=== PATIENT | female | born 1985 | race Caucasian/White ===

== ENCOUNTER 2021-02-16 12:40 | Emergency (ER) | payer SELFPAY ==
[2021-02-16] MEDS ORDERED: Naproxen 500 MG TAB ONE (13:23)
== END 2021-02-16 14:37 | disposition home or self-care (01) ==
LOC: NAV ERS 12:40
DX: S56.911A Strain of unspecified muscles, fascia and tendons at forearm level, right arm, initial encounter (principal); X58.XXXA Exposure to other specified factors, initial encounter

== ENCOUNTER 2021-03-07 06:16 | Emergency (ER) | payer BC, SELFPAY ==
[2021-03-07] MEDS ORDERED: Morphine 4 MG/ML VIAL ONE ×2 (07:01→07:39)
[2021-03-07] MEDS ORDERED: Sodium Chloride 0.9% 1,000 ML ONE (07:01)
[2021-03-07] MEDS ORDERED: Ondansetron PF 4 MG/2 ML Vial ONE (07:01)
[2021-03-07 07:07] LABS: #Basophils 0.1 thou/uL (0.0-0.2); #Eosinphils 0.3 thou/uL (0.0-0.7); #Lymphocytes 2.4 thou/uL (1.20-3.40); #Monocytes 0.5 thou/uL (0.11-0.59); #Neutrophils 4.8 thou/uL (1.40-6.50); %Basophils 1.3 % (0.0-1.0); %Eosinophils 3.8 % (0.0-10.0); %Lymphocytes 29.2 % (21.0-51.0); %Neutrophils 59.8 % (42.0-75.0); Hemoglobin 15.6 g/dL (12.0-16.0); Mean Corpuscular HGB CONC 32.8 g/dL (32.0-36.0); Mean Corpuscular Hemoglobin 33.4 pg (27.0-31.0); Mean Platelet Volume 6.5 fL (7.4-10.4); Platelet Count 357 thou/uL (130-400); RBC Distribution Width 10.8 % (11.5-14.5); Red Blood Cell (RBC) Count 4.68 mill/uL (4.20-5.40); White Blood Cell (WBC) Count 8.1 thou/uL (4.8-10.8)
[2021-03-07 07:22] LABS: ALT (SGPT) 24 U/L (8-55); AST (SGOT) 31 U/L (5-34); Albumin 4.2 g/dL (3.5-5.0); Alkaline Phosphatase 69 U/L (40-110); Anion Gap 13 mmol/L (10-20); BUN (Urea Nitrogen) 18 mg/dL (7.0-18.7); Bilirubin, Total 0.2 mg/dL (0.2-1.2); Calc. Creatinine Clearance 0 mL/min (70-130); Calcium 9.5 mg/dL (7.8-10.44); Carbon Dioxide 22 mmol/L (22-29); Chloride 104 mmol/L (98-107); Globulin 3.6 g/dL (2.4-3.5); Glucose 86 mg/dL (70-105); Lipase 37 U/L (8-78); Potassium 3.9 mmol/L (3.5-5.1); Protein, Total 7.8 g/dL (6.0-8.3); Sodium 135 mmol/L (136-145)
[2021-03-07 07:46] LABS: Bilirubin Negative (Negative); Blood, Urine Moderate (Negative); Clarity Clear (Clear); Glucose, Urine (Dipstick) Negative (Negative); Ketone, Urine Negative (Negative); Leukocyte Negative (Negative); Nitrite Negative (Negative); Protein, Urine (Dipstick) Negative (Neg-Trace); Urobilinogen 0.2 mg/dL (Less than 2)
[2021-03-07 07:54] LABS: WBC/HPF 0-3 HPF (0-3)
[2021-03-07 07:55] LABS: Bacteria/HPF Rare-Few HPF (None Seen)
[2021-03-07] MEDS ORDERED: Iopamidol 370 76% 100 ML VIAL ONE (09:00)
== END 2021-03-07 09:10 | disposition home or self-care (01) ==
LOC: NAV ERS 06:16
DX: S39.011A Strain of muscle, fascia and tendon of abdomen, initial encounter (principal); F17.210 Nicotine dependence, cigarettes, uncomplicated; X50.9XXA Other and unspecified overexertion or strenuous movements or postures, initial encounter
CPT/HCPCS: 71046; 74177; 80053; 81003; 81015; 83605; 83690; 85025; 96374; 96375; 96376; J2270; J2405; J7050; Q9967

== ENCOUNTER 2021-07-24 07:40 | Emergency (ER) | payer BC, SELFPAY ==
[2021-07-24] MEDS ORDERED: Ondansetron PF 4 MG/2 ML Vial ONE (08:27)
[2021-07-24] MEDS ORDERED: Sodium Chloride 0.9% 1,000 ML ONE (08:27)
[2021-07-24] MEDS ORDERED: Morphine 4 MG/ML VIAL ONE (08:27)
[2021-07-24 08:31] LABS: #Basophils 0.1 thou/uL (0.0-0.2); #Eosinphils 0.6 thou/uL (0.0-0.7); #Lymphocytes 2.5 thou/uL (1.20-3.40); #Monocytes 0.6 thou/uL (0.11-0.59); #Neutrophils 5.7 thou/uL (1.40-6.50); %Lymphocytes 26.4 % (21.0-51.0); %Monocytes 6.2 % (0.0-10.0); %Neutrophils 60.4 % (42.0-75.0); Hemoglobin 16.4 g/dL (12.0-16.0); Mean Corpuscular Hemoglobin 33.5 pg (27.0-31.0); Mean Platelet Volume 6.4 fL (7.4-10.4); Platelet Count 419 thou/uL (130-400); RBC Distribution Width 10.9 % (11.5-14.5); Red Blood Cell (RBC) Count 4.89 mill/uL (4.20-5.40); White Blood Cell (WBC) Count 9.4 thou/uL (4.8-10.8)
[2021-07-24 08:34] LABS: Bilirubin Negative (Negative); Blood, Urine Moderate (Negative); Clarity Clear (Clear); Glucose, Urine (Dipstick) Negative (Negative); Ketone, Urine Negative (Negative); Leukocyte Negative (Negative); Nitrite Negative (Negative); Protein, Urine (Dipstick) Negative (Neg-Trace); Urobilinogen 0.2 mg/dL (Less than 2)
[2021-07-24 08:35] LABS: Specific Gravity, Urine 1.004 (1.002-1.036)
[2021-07-24 08:41] LABS: Bacteria/HPF Rare-Few HPF (None Seen); Squamous Epithelial 0-3 HPF (0-3); WBC/HPF None Seen HPF (0-3)
[2021-07-24 08:48] LABS: ALT (SGPT) 19 U/L (8-55); AST (SGOT) 28 U/L (5-34); Albumin 4.8 g/dL (3.5-5.0); Alkaline Phosphatase 75 U/L (40-110); Anion Gap 15 mmol/L (10-20); BUN (Urea Nitrogen) 15 mg/dL (7.0-18.7); Bilirubin, Total 0.4 mg/dL (0.2-1.2); Calc. Creatinine Clearance 0 mL/min (70-130); Calcium 9.6 mg/dL (7.8-10.44); Carbon Dioxide 23 mmol/L (22-29); Chloride 102 mmol/L (98-107); Globulin 3.2 g/dL (2.4-3.5); Glucose 91 mg/dL (70-105); Lipase 7 U/L (8-78); Sodium 136 mmol/L (136-145)
[2021-07-24] MEDS ORDERED: Iopamidol 370 76% 100 ML VIAL ONE (09:00)
[2021-07-24] MEDS ORDERED: Ketorolac Tromethamine 30 MG/ML VIAL ONE (09:48)
== END 2021-07-24 10:38 | disposition home or self-care (01) ==
LOC: NAV ERS 07:40
DX: R10.11 Right upper quadrant pain (principal); R10.816 Epigastric abdominal tenderness; R07.89 Other chest pain; F17.210 Nicotine dependence, cigarettes, uncomplicated
CPT/HCPCS: 71045; 74177; 80053; 81003; 81015; 83605; 83690; 84484; 85025; 93005; 94760; 96374; 96375; J1885; J2270; J2405; J7050; Q9967

== ENCOUNTER 2021-12-05 10:02 | Emergency (ER) | payer BC ==
[2021-12-05] MEDS ORDERED: Ketorolac Tromethamine 30 MG/ML VIAL ONE (10:36)
[2021-12-05 10:57] LABS: #Basophils 0.1 thou/uL (0.0-0.2); #Eosinphils 0.2 thou/uL (0.0-0.7); #Lymphocytes 2.3 thou/uL (1.20-3.40); #Monocytes 0.5 thou/uL (0.11-0.59); #Neutrophils 5.3 thou/uL (1.40-6.50); %Basophils 1.2 % (0.0-1.0); %Eosinophils 2.4 % (0.0-10.0); %Lymphocytes 27.6 % (21.0-51.0); %Monocytes 5.5 % (0.0-10.0); %Neutrophils 63.3 % (42.0-75.0); Hemoglobin 14.5 g/dL (12.0-16.0); Mean Corpuscular Hemoglobin 32.9 pg (27.0-31.0); Mean Platelet Volume 6.7 fL (7.4-10.4); Platelet Count 380 thou/uL (130-400); RBC Distribution Width 10.9 % (11.5-14.5); White Blood Cell (WBC) Count 8.4 thou/uL (4.8-10.8)
[2021-12-05 11:11] LABS: ALT (SGPT) 24 U/L (8-55); AST (SGOT) 22 U/L (5-34); Albumin 4.5 g/dL (3.5-5.0); Alkaline Phosphatase 65 U/L (40-110); Anion Gap 16 mmol/L (10-20); BUN (Urea Nitrogen) 11 mg/dL (7.0-18.7); Bilirubin, Total 0.4 mg/dL (0.2-1.2); Calc. Creatinine Clearance 0 mL/min (70-130); Calcium 9.9 mg/dL (7.8-10.44); Carbon Dioxide 24 mmol/L (22-29); Chloride 102 mmol/L (98-107); Estimated GFR 111; Globulin 3.2 g/dL (2.4-3.5); Glucose 90 mg/dL (70-105); Potassium 3.6 mmol/L (3.5-5.1); Protein, Total 7.7 g/dL (6.0-8.3); Sodium 138 mmol/L (136-145)
== END 2021-12-05 11:45 | disposition home or self-care (01) ==
LOC: NAV ERS 10:02
DX: S22.41XA Multiple fractures of ribs, right side, initial encounter for closed fracture (principal); F17.210 Nicotine dependence, cigarettes, uncomplicated; W19.XXXA Unspecified fall, initial encounter
CPT/HCPCS: 80053; 85025; 96374; J1885

== ENCOUNTER 2021-12-26 05:40 | Emergency (ER) | payer BC ==
[2021-12-26] MEDS ORDERED: Amoxicillin/Potassium Clav 875 MG TAB ONE (06:28)
== END 2021-12-26 06:35 | disposition home or self-care (01) ==
LOC: NAV ERS 05:40
DX: J01.90 Acute sinusitis, unspecified (principal); F17.210 Nicotine dependence, cigarettes, uncomplicated
CPT/HCPCS: 99283